=== PATIENT | female | born 2005 | race Two or more races ===

== ENCOUNTER 2025-08-23 11:02 | Emergency (ER) | payer MEDICAID, SELFPAY ==
--- NOTE | 2025-08-23 11:06 | EKG_ITS ---
[facility] Test Date: 2025-08-23 Pat Name: ABDON LEONARDO Department: Room: - Gender: Female Associate Store Manager: : 2005 Requested By: Davis Mercer Order Number: [id number] Reading MD: Davis Mercer Measurements Intervals [place] Rate: 122 P: 44 [place]: 126 QRS: 33 QRSD: 97 T: 19 QT: 303 QTc: 433 Interpretive Statements SINUS TACHYCARDIA INCOMPLETE RIGHT BUNDLE BRANCH BLOCK [90+ ms QRS DURATION, TERMINAL R IN V1/V2, 40+ ms S IN I/aVL/V4/V5/V6] NONSPECIFIC T-WAVE ABNORMALITY ABNORMAL RHYTHM ECG No previous ECG available for comparison /store/S0/[id number]/ecg/[id number].pdf
[2025-08-23 11:17] VITALS: BP 104/67; PULSE 125; RESP 18; TEMP 37.1; O2SAT 99; BMI 29.0
--- NOTE | 2025-08-23 11:21 | XR_ITS ---
EXAMINATION: PA chest single view TECHNIQUE: Upright PA chest single view Date and time: August 23, 2025, 1129 hours INDICATION: Chest pain shortness of breath today. FINDINGS: Dense opacity in the left perihilar region Normal heart size Right lung clear Osseous structures are intact IMPRESSION: Dense opacity in the left parahilar region most consistent with pneumonia, differential would include coccidioidomycosis Follow-up chest imaging is needed to document clearing
--- NOTE | 2025-08-23 11:22 | EDNOTE_ITS ---
ED Chest Pain RME/HPI General Chief Complaint: Chest Pain Stated Complaint: UPPER CHEST PAIN, INCREASED WITH DEEP BREATHING Time Seen by Provider: 08/23/25 11:15 Arrival date/time: 08/23/25 11:02 20-year-old female patient with no past medical history, came in for evaluation regarding palpitation. Patient has been having palpitations since yesterday, severity moderate, associated with chest discomfort. Patient went to PCP and was referred to her for further evaluation. Patient denies any dizziness denies any cough denies any fever denies any abdominal pain denies any vomiting blood or blood in the stool or heavy menstruation. No medication was taken prior to ER visit. Related Data Previous Rx's ?Medication ?Instructions ?Recorded cyclobenzaprine 5 mg tablet 5 mg PO QDAY PRN muscle sp asm #10 03/10/21 tabs ibuprofen 400 mg tablet (IBU) 400 mg PO Q8H PRN pain # 30 tabs 03/10/21 doxycycline monohydrate 100 mg 100 mg PO BID #14 caps 08/23/25 capsule Allergies Allergy/AdvReac Type Severity Reaction Status Date / Time No Known Allergies Allergy Verified 08/23/25 11:03 Review of Systems Review of Systems Narrative Review of Systems: Review of system reviewed and within normal limits except mentioned in HPI ED Exam Narrative Physical exam: VITAL SIGNS: Reviewed. GENERAL APPEARANCE: Alert and interactive, follows commands, no acute distress, HEAD AND FACE: Non-traumatic. ENT: PERRL, pink conjunctivitis, eyelid no trauma, Mucous membrane moist. NECK: Supple, nontender, no nuchal rigidity. CHEST: No tenderness, no crepitus, no paradoxical movement, no retractions. LUNGS: Clear, well ventilated, symmetric, no rales, no wheezing, no ronchi, no stridor, good breath sounds bilaterally. HEART: tachycardic, no murmur, no gallops. ABDOMEN: Soft, positive bowel sounds, nondistended, no guarding, nontender, no rebound, no masses, RECTAL: Deferred. GENITAL: Deferred. NEUROLOGICAL: Gross motor function intact sensory function intact, Appropriate for age. MUSCULOSKELETAL: low back nontender, full range of motion. EXTREMITIES: Nontender, full range of motion. SKIN: Color pink, dry, no rash, no lacerations, no abrasions, no contusions. LYMPHATICS: Deferred. Course Quality Measures none Orders Category Date Time Status EKG (ED ONLY) *Do not use* NOW Care 08/23/25 11:06 Completed EKG (ED Only) Stat Exams 08/23/25 11:06 Draft XR chest 1V Stat Exams 08/23/25 11:21 Completed B-Type Natriuretic Peptide Stat Lab 08/23/25 11:27 Completed CBC Stat Lab 08/23/25 11:27 Completed Cocci Serology IgM with reflex to IgG [Cocci Serology, Lab 08/23/25 13:54 Ordered Unk History] Stat Comprehensive Metabolic Panel Stat Lab 08/23/25 11:27 Completed D-Dimer Stat Lab 08/23/25 11:27 Completed HCG Qualitative,Urine Stat Lab 08/23/25 11:53 Completed Partial Thromboplastin Time Stat Lab 08/23/25 11:27 Completed TSH [Thyroid Stimulating Hormone] Stat Lab 08/23/25 11:27 Completed Troponin I Stat Lab 08/23/25 11:27 Completed Urinalysis, C/S if Indicated Stat Lab 08/23/25 11:53 Completed Vital Signs Vital signs: Vital Signs Temperature 98.7 F 08/23/25 11:17 Pulse Rate 125 H 08/23/25 11:17 Respiratory Rate 18 08/23/25 11:17 Blood Pressure 104/67 08/23/25 11:17 Pulse Oximetry (%) 99 08/23/25 11:17 Oxygen Delivery Method Room Air 08/23/25 11:17 Chest Pain MDM Narrative MDM Narrative:: 08/23/25 11:02 20-year-old female patient with no past medical history, came in for evaluation regarding palpitation. Patient has been having palpitations since yesterday, severity moderate, associated with chest discomfort. Patient went to PCP and was referred to her for further evaluation. Patient denies any dizziness denies any cough denies any fever denies any abdominal pain denies any vomiting blood or blood in the stool or heavy menstruation. No medication was taken prior to ER visit. Patient's workup today all came back unremarkable except for chest x-ray that showed possible pneumonia versus cocci. I added cocci test the results will be back in probably 2 days. Patient will be sent home on doxycycline, and asked her to follow-up with PCP in 2 days for the results of the cocci. Patient stable for discharge home satting 99% on room air ambulatory. No fever noted. Patient data External records reviewed:: None Clinical information provided by:: patient Social determinants that could affect healthcare access:: none Patient has the following chronic illnesses:: None How is presenting disease/condition affected by chronic disease/condition?: no chronic disease Evaluation data The following diagnostics were reviewed and interpreted by me:: lab results, radiology exam(s) and EKG tracing(s) Lab and/or radiology exams considered but not ordered:: None Interpretation Summary: EKG showed sinus tachycardia, ventricular rate of 125 bpm, no ST segment elevation depression noted. Medications / Prescriptions Medications or Prescriptions considered but not ordered:: None Medication administrations:: None Consultations Consultation(s) initiated? (list below): No Diagnosis Chest Pain Differential Diagnosis: pneumothorax, chest pain and other (Pneumonia) Most likely diagnosis given after review of the tests above:: Pneumonia Admission Indicated Admission indicated?: not indicated Admission Request Was there a request for admission?: No Disposition Plan Disposition Plan: Discharge Discharge Attestation Discharge Attestation: The patient and all family members were given an opportunity to ask questions and understood the discharge instructions. Discharge instructions specifically effects, indications for sooner follow up or return to the emergency department, and the expected course of current diagnosis. Patient condition: Stable Discharge Plan Plan Patient Disposition: HOME (Self Care) Discharge Disposition comment: Stable Prescriptions/Referrals Prescriptions/Med Rec: New doxycycline monohydrate 100 mg capsule 100 mg PO BID Qty: 14 0RF No Action cyclobenzaprine 5 mg tablet 5 mg PO QDAY PRN (Reason: muscle spasm) Qty: 10 0RF ibuprofen [IBU] 400 mg tablet 400 mg PO Q8H PRN (Reason: pain) Qty: 30 0RF Referrals: Kristina Fitzpatrick PA-C [Primary Care Provider] - In 1 week Problem List Clinical Impression: Pneumonia Patient/Caregiver Discharge Instructions Discharge Activity: activity as tolerated Education Materials: ED Pneumonia (Adult) Additional Instructions: Thank you for the opportunity for serving you today. You are stable for discharged . You are advised to: Follow-up with your PCP in 1 to 2 days Return to ED for worsening of symptoms Increase oral fluids Take medication as prescribed Follow-up with your PCP in few days regarding your cocci results Print Language: [place] Stand Alone Forms: Mariann Award Info., Patient Portal Info Letter PA/KEITH Supervising Physician PA/OIL [employer] STATION OPERATOR CHIEF Supervising Physician: MD Arpita
[2025-08-23 12:00] LABS: Collection Type, Urine Clean Catch
[2025-08-23 12:02] LABS: B-Type Natriuretic Peptide < 20 pg/mL (0-100)
[2025-08-23 12:07] LABS: Alanine Aminotransferase 24 U/L (10-49); Albumin, Serum 4.7 gm/dL (3.5-5.0); Albumin/Globulin Ratio 1.5 (1.2-2.2); Alkaline Phosphatase 95 U/L (46-116); Anion Gap 8 (7-16); Aspartate Amino Transferase 25 U/L (0-34); BUN/Creatinine Ratio 8 Ratio (12-20); Bilirubin,Total 0.9 mg/dL (0.3-1.2); Blood Urea Nitrogen 9 mg/dL (9-23); Calcium 9.7 mg/dL (8.3-10.6); Calcium (Corrected) 9.7 mg/dL (8.5-10.1); Carbon Dioxide 26.2 mMol/L (20.0-31.0); Chloride 105 mMol/L (98-107); Creatinine (Component) 1.1 mg/dL (0.6-1.3); Estimated Creatinine Clearance 87.9 mL/min (>60); Globulin 3.2 gm/dL (2.3-3.5); Glucose 98 mg/dL (74-106); Osmolality,Calculated 276 (275-295); Partial Thromboplastin Time 31.6 Seconds (22.0-36.0); Potassium 3.9 mMol/L (3.4-5.1); Sodium 139 mMol/L (136-145); Thyroid Stimulating Hormone 2.35 uIU/mL (0.55-4.78); Total Protein 7.9 gm/dL (5.7-8.2); Troponin I < 0.002 ng/mL (0.0-0.045); eGFR > 60 See Note
[2025-08-23 12:24] LABS: Basophils # (Auto) 0.0 Thou/mm3 (0.0-0.2); Basophils % (Auto) 0 % (0-2.5); Eosinophils # (Auto) 0.3 Thou/mm3 (0.0-0.5); Eosinophils % (Auto) 3 % (0-10); Hematocrit 36.2 % (36.0-46.0); Hemoglobin 12.0 g/dL (12.0-16.0); Immature Granulocytes Auto 0.02 Thou/mm3 (0.00-0.00); Lymphocytes # (Auto) 1.6 Thou/mm3 (1.0-4.8); Lymphocytes % (Auto) 16 % (10-50); Mean Corpuscular HGB Conc 33.1 g/dl (31.0-37.0); Mean Corpuscular Hemoglobin 29.9 pg (25.0-35.0); Mean Corpuscular Volume 90 fL (80-100); Monocytes # (Auto) 0.9 Thou/mm3 (0.0-0.8); Monocytes % (Auto) 9 % (0-12); Neutrophils # (Auto) 7.3 Thou/mm3 (1.8-7.7); Neutrophils % (Auto) 73 % (37-80); Nucleated Red Blood Cell # 0.00 Thou/mm3 (0.00-0.00); Nucleated Red Blood Cell % 0 /100 WBC (0); Platelet Count 283 Thou/mm3 (140-440); RDW Standard Deviation 41.0 fL (36.4-46.3); Red Blood Count 4.02 Miln/mm3 (4.00-5.20); White Blood Count 10.0 Thou/mm3 (4.5-11.0)
[2025-08-23 12:38] LABS: HCG Qualitative,Urine Negative
[2025-08-23 13:19] LABS: Bilirubin,Urine Negative (Negative); Blood,Urine Negative (Negative); Clarity,Urine Clear (Clear/Hazy); Color,Urine Lt-Yellow (Lt Yel-Yel); Culture Indicated,Urine Not Indicated; Glucose, Urine Negative (Negative); Ketones,Urine Negative (Negative); Leukocyte Esterase,Urine Negative (Negative); Nitrite,Urine Negative (Negative); PH,Urine 7.0 (5.0-7.0); Protein,Urine Trace (Neg - Trace); RBC,Urine 3 /hpf (0-3); Specific Gravity,Urine 1.034 (1.001-1.035); Squamous Epithelial Cell,Urine 1 /hpf (0-5); Urobilinogen,Urine Negative mg/dL (0.0-1.0); WBC,Urine 1 /hpf (0-5)
[2025-08-23 13:35] LABS: D-Dimer < 250 ng/mL (<600)
[2025-08-24 11:43] LABS: Cocci Serology, IgM Positive (Negative)
[2025-08-24 11:48] LABS: Cocid Sro, CF/ID (UCD) NO CHG* See Sep Rpt
== END 2025-08-23 16:45 | disposition home or self-care (01) ==
PROVIDERS: Nurse Practitioner Family; Emergency Provider Family Medicine; PCP Physician Assistant
DX: J18.9 Pneumonia, unspecified organism (principal); I47.20 Ventricular tachycardia, unspecified
CPT/HCPCS: 36415; 71045; 80053; 81001; 81025; 83880; 84443; 84484; 85025; 85379; 85730; 86635; 93005; 99283